=== PATIENT | female | born 1955 ===

== ENCOUNTER 2018-08-11 17:50 | Emergency (ER) | payer MEDICAID, MEDICARE ==
--- NOTE | 2018-08-11 18:21 | Emergency Department Report ---
ED General Adult HPI - General Chief complaint: Psych Stated complaint: MENTAL HEALTH Time Seen by Provider: 08/11/18 18:20 Source: patient, RN notes reviewed Mode of arrival: Ambulatory Limitations: Other (patient is actively psychotic) - History of Present Illness Initial comments: This is a 63-year-old female, not known to this provider previously, but to the hospital by her ACT counselor, Ms. Zamora; [phone]. Apparently, patient has a history of diabetes, hypertension, schizophrenia, has been noncompliant with her medications, and is brought to the hospital on a 1013. Apparently, patient lives in a personal retirement, and has been harming or tenting to harm people in her community. The patient is hyperverbal, but reports that she is not homicidal, suicidal, reports that she does not have access to guns or firearms, and reports no hallucinations. She denies physical pain. The patient is not able to describe the alleged exacerbating, relieving factors, radiation factors of the aforementioned. -: unknown Quality: other Consistency: other Improves with: other Worsens with: other Associated Symptoms: denies: chest pain - Related Data Home Medications Medication Instructions Recorded Confirmed Last Taken Benztropine [Cogentin] 1 mg PO BID 08/11/18 08/11/18 Unknown Divalproex Sodium [Depakote ER] 500 mg PO BID 08/11/18 08/11/18 Unknown risperiDONE [RisperDAL] 1 mg PO QHS 08/11/18 08/11/18 Unknown Allergies Allergy/AdvReac Type Severity Reaction Status Date / Time No Known Allergies Allergy Unverified 08/11/18 17:59 ED Review of Systems ROS: Stated complaint: MENTAL HEALTH Other details as noted in HPI Constitutional: denies: fever Eyes: denies: eye discharge ENT: denies: epistaxis Respiratory: denies: cough Cardiovascular: denies: chest pain Gastrointestinal: denies: abdominal pain Musculoskeletal: back pain Psychiatric: denies: suicidal thoughts ED Past Medical Hx - Past Medical History Previous Medical History?: Yes Hx Hypertension: Yes Hx Diabetes: Yes - Social History Smoking Status: Current Every Day Smoker Substance Use Type: Alcohol - Medications Home Medications: Home Medications Medication Instructions Recorded Confirmed Last Taken Type Benztropine [Cogentin] 1 mg PO BID 08/11/18 08/11/18 Unknown History Divalproex Sodium [Depakote ER] 500 mg PO BID 08/11/18 08/11/18 Unknown History risperiDONE [RisperDAL] 1 mg PO QHS 08/11/18 08/11/18 Unknown History ED Physical Exam - General Limitations: Other (patient is psychotic) General appearance: alert, in no apparent distress - Head Head exam: Present: atraumatic, normocephalic - Eye Eye exam: Present: normal appearance, EOMI. Absent: nystagmus - ENT ENT exam: Present: normal exam, normal orophraynx, mucous membranes moist, nor mal external ear exam - Neck Neck exam: Present: normal inspection, full ROM. Absent: tenderness, meningismus - Respiratory Respiratory exam: Present: normal lung sounds bilaterally. Absent: respiratory distress - Cardiovascular Cardiovascular Exam: Present: regular rate, normal rhythm, normal heart sounds. Absent: bradycardia, tachycardia, irregular rhythm, systolic murmur, diastolic murmur, rubs, gallop - GI/Abdominal GI/Abdominal exam: Present: soft. Absent: distended, tenderness, guarding, rebound, rigid, pulsatile mass - Extremities Exam Extremities exam: Present: normal inspection, full ROM, other (2+ pulses noted in the bilateral upper, lower extremities. Compartments soft. No long bony tenderness. The pelvis is stable.). Absent: calf tenderness - Back Exam Back exam: Present: normal inspection, full ROM. Absent: tenderness, CVA tenderness (R), paraspinal tenderness, vertebral tenderness - Neurological Exam Neurological exam: Present: alert, other (Extraocular movements intact. Tongue midline. No facial droop. Facial sensation intact to light touch in the V1, V2, V3 distribution bilaterally. 5 and 5 strength in 4 extremities.. Sensation is intact to light touch in 4 extremities.). Absent: motor sensory deficit - Psychiatric Psychiatric exam: Present: agitated, anxious - Skin Skin exam: Present: warm, dry, intact, normal color. Absent: rash ED Course Vital Signs 08/11/18 17:55 Temperature 99.7 F H Pulse Rate 99 H Respiratory 16 Rate Blood Pressure 143/86 O2 Sat by Pulse 100 Oximetry - Reevaluation(s) Reevaluation #1: 08/11/18 19:24 Differential diagnosis, including but not limited to: Psychosis, medical clearance for psychiatric placement, anxiety, agitation Assessment and plan: 63-year-old female with florid psychosis, agitated, amenable to verbal Descalation techniques, who is alert to name, location, month and year, with no documented fever, no neck pain,no neck stiffness, and an unr emarkable physical examination. The patient is hyperverbal, and easily distracted and disorganized. He is placed on a 1013. Screening laboratory studies pending. Psychiatry consult has been requested. Reevaluation #2: 08/11/18 21:03 Laboratory studies reviewed and are unremarkable. Patient is resting comfortably. The patient is in no acute distress at this time. At this point in time, there does not appear to be in immediate medical contraindication to psychiatric admission, evaluation and consultation. Psychiatry team has been paged. ED Medical Decision Making - Lab Data Result diagrams: 08/11/18 18:01 08/11/18 18:01 Vital Signs 08/11/18 17:55 Temperature 99.7 F H Pulse Rate 99 H Respiratory 16 Rate Blood Pressure 143/86 O2 Sat by Pulse 100 Oximetry Labs 08/11/18 08/11/18 08/11/18 18:01 18:01 18:01 WBC RBC Hgb Hct MCV MCH MCHC RDW Plt Count Lymph % (Auto) [place] % (Auto) Eos % (Auto) Baso % (Auto) Lymph # [place] # Eos # Baso # Seg Neutrophils % Seg Neutrophils # Sodium 141 Potassium 4.3 Chloride 102.7 Carbon Dioxide 28 Anion Gap 15 BUN 12 Creatinine 1.1 Estimated GFR 50 BUN/Creatinine Ratio 11 Glucose 238 H Calcium 9.8 Total Creatine Kinase Salicylates < 0.3 L Acetaminophen < 5.0 L Plasma/Serum Alcohol 08/11/18 08/11/18 08/11/18 18:01 18:01 18:25 WBC 7.2 RBC 4.31 Hgb 11.3 Hct 35.3 MCV 82 MCH 26 L MCHC 32 RDW 18.7 H Plt Count 204 Lymph % (Auto) 40.2 H [place] % (Auto) 5.6 Eos % (Auto) 2.0 Baso % (Auto) 0.3 Lymph # 2.9 [place] # 0.4 Eos # 0.1 Baso # 0.0 Seg Neutrophils % 51.9 Seg Neutrophils # 3.7 Sodium Potassium Chloride Carbon Dioxide Anion Gap BUN Creatinine Estimated GFR BUN/Creatinine Ratio Glucose Calcium Total Creatine Kinase 351 H Salicylates Acetaminophen Plasma/Serum Alcohol < 0.01 Critical care attestation.: If time is entered above; I have spent that time in minutes in the direct care of this critically ill patient, excluding procedure time. ED Disposition Clinical Impression: Medical clearance for psychiatric admission Disposition: [id number] PSY HOSP/PSY UNIT Is pt being admited?: No Does the pt Need Aspirin: No Condition: Good
[2018-08-11 18:30] LABS: Basophils % (Auto) 0.3 % (0.0-1.8); Eosinophils # (Auto) 0.1 K/mm3 (0.0-0.4); Hematocrit 35.3 % (30.3-42.9); Hemoglobin 11.3 gm/dl (10.1-14.3); Lymphocytes # (Auto) 2.9 K/mm3 (1.2-5.4); Lymphocytes % (Auto) 40.2 % (13.4-35.0); Mean Corpuscular HGB Conc 32 % (30-34); Mean Corpuscular Volume 82 fl (79-97); Monocytes # (Auto) 0.4 K/mm3 (0.0-0.8); Monocytes % (Auto) 5.6 % (0.0-7.3); Platelet Count 204 K/mm3 (140-440); Red Blood Count 4.31 M/mm3 (3.65-5.03); Red Cell Distribution Width 18.7 % (13.2-15.2)
[2018-08-11 18:48] LABS: Calcium 9.8 mg/dL (8.4-10.2)
[2018-08-11] MEDS: RisperDAL PO SCH (21:28)
[2018-08-11] MEDS: COGENTIN PO SCH (21:28)
[2018-08-12 07:20] LABS: Bilirubin,Urine NEG (Negative); Blood,Urine NEG (Negative); Color,Urine Yellow (Yellow); Hyaline Casts,Urine 1 /LPF; Protein,Urine <15 mg/dL mg/dL (Negative); RBC,Urine < 1.0 /HPF (0.0-6.0); Urobilinogen,Urine < 2.0 mg/dL (<2.0)
[2018-08-12 07:41] LABS: Amphetamine Screen,Urine PRESUMPTIVE NEGATIVE; Benzodiazepines Screen,Urine PRESUMPTIVE NEGATIVE; Cannabinoid Screen,Urine PRESUMPTIVE NEGATIVE; Cocaine Screen,Urine PRESUMPTIVE NEGATIVE; Methadone Screen,Urine PRESUMPTIVE NEGATIVE; Opiate Screen,Urine PRESUMPTIVE NEGATIVE
[2018-08-12] MEDS: COGENTIN PO SCH ×2 (10:35→22:50)
[2018-08-12] MEDS ORDERED: NORVASC PO ONE (11:04)
[2018-08-12] MEDS ORDERED: ZESTRIL PO ONE (11:04)
--- NOTE | 2018-08-12 11:06 | Emergency Department Report ---
Blank Doc - Documentation Documentation: I was asked by RN to manage hypertension. According to my colleague's documen jana, patient does have history of diabetes and hypertension. I have initiated amlodipine and lisinopril. Also requested nurse to contact pharmacy for her full list of home medications.
[2018-08-12] MEDS: ATIVAN IM PRN (12:58)
[2018-08-12] MEDS: HALDOL IM PRN (12:58)
--- NOTE | 2018-08-12 13:58 | Consultation ---
History of Present Illness - Reason for Consult Consult date: 08/12/18 Reason for consult: Mental Health Evaluation Requesting physician: SIA ROCHA - Chief Complaint Chief complaint: "I was upset, that's all" - History of Present Psychiatric Illness 63 y.o. AA female who presented to the ER on a 1013 by her ACT counselor for bizarre behavior. Today the patient is calm and cooperative during the assessment. She stated that she got into an argument with her counselor about other residents at her [facility]. She stated that she was trying to get her counselor to under her side of the "story," but things got "bad." She stated that she was upset and she was brought to the ER. She stated that she wouldn't mind going back to her group if possible. She was asked about psy medications, she stated, "I'm not really sure what I take." She denies SI/HI's and AVH's. She denies erratic sleep and a poor appetite. She denies recreational drug use and alcohol consumption (etoh). Medications and Allergies Allergies Allergy/AdvReac Type Severity Reaction Status Date / Time No Known Allergies Allergy Unverified 08/11/18 17:59 Home Medications Medication Instructions Recorded Confirmed Last Taken Type Benztropine [Cogentin] 1 mg PO BID 08/11/18 08/11/18 Unknown History Divalproex Sodium [Depakote ER] 500 mg PO BID 08/11/18 08/11/18 Unknown History risperiDONE [RisperDAL] 1 mg PO QHS 08/11/18 08/11/18 Unknown History Active Meds: Active Medications Benztropine Mesylate (Cogentin) 1 mg PO BID [facility] Last Admin: 08/12/18 10:35 Dose: 1 mg Documented by: Divalproex Sodium (Depakote Er) 500 mg PO BID [facility] Last Admin: 08/12/18 10:35 Dose: 500 mg Documented by: Haloperidol Lactate (Haldol) 5 mg IM Q6HR PRN PRN Reason: Agitation Last Admin: 08/12/18 12:58 Dose: 5 mg Documented by: Lorazepam (Ativan) 2 mg IM Q4HR PRN PRN Reason: Agitation Last Admin: 08/12/18 12:58 Dose: 2 mg Documented by: Risperidone (Risperdal) 1 mg PO QHS [facility] Last Admin: 08/11/18 21:28 Dose: 1 mg Documented by: Past psychiatric history - Past Medical History Past Medical History: diabetes, hypertension Past Surgical History: No surgical history - past Psychiatric treatment and history psychiatric treatment history: outpatient psy services (ACT team). Denies a fam psy hx. - Social History Social history: other (Reside at a fpc) Mental Status Exam - Vital signs Last Vital Signs Temp 99.1 F 08/12/18 13:00 Pulse 75 08/12/18 13:00 Resp 16 08/12/18 13:00 BP 169/106 08/12/18 13:00 Pulse Ox 98 08/12/18 13:00 - Exam Narrative exam: MSE: Appearance: calm, cooperative Behavior: regular eye contact Speech: regular rate and tone Mood: "okay" Affect: congruent to mood Thought Process: circumstantial Thought Content: denies SI/HI's and VH's Motor Activity: sitting up in bed Cognition: A/O x 3 Insight:variable to fair Judgment: fair Results Result Diagrams: 08/11/18 18:01 08/11/18 18:01 Abnormal lab results 08/11/18 08/11/18 08/11/18 Range/Units 18:01 18:01 18:01 MCH (28-32) pg RDW (13.2-15.2) % Lymph % (Auto) (13.4-35.0) % Glucose 238 H (65-100) mg/dL Total Creatine Kinase (30-135) units/L Salicylates < 0.3 L (2.8-20.0) mg/dL Acetaminophen < 5.0 L (10.0-30.0) ug/mL Valproic Acid (50-100) ug/mL 08/11/18 08/11/18 08/11/18 Range/Units 18:01 18:25 19:28 MCH 26 L (28-32) pg RDW 18.7 H (13.2-15.2) % Lymph % (Auto) 40.2 H (13.4-35.0) % Glucose (65-100) mg/dL Total Creatine Kinase 351 H (30-135) units/L Salicylates (2.8-20.0) mg/dL Acetaminophen (10.0-30.0) ug/mL Valproic Acid < 2.8 L (50-100) ug/mL All other labs normal. Assessment and Plan Assessment and plan: Impression:: Today the patient is calm and cooperative during the assessment. UDS is negative. DDx Mood DO, R/O Psychotic DO Recommendation/Plan: Continue 1013 and gather collateral information to determine proper treatment. Voicemail was left for the patient's counselor Noah at [phone]. Dispo: Once collateral information is gathered, proper dispo will be determined. Staffed with Dr Ruby.
[2018-08-12] MEDS: RisperDAL PO SCH (22:50)
[2018-08-13] MEDS: COGENTIN PO SCH (11:03)
--- NOTE | 2018-08-13 11:09 | Progress Note ---
Subjective - Reason for Consult Consult date: 08/13/18 Reason for consult: Psychiatry Follow-up - Chief Complaint Chief complaint: "I'm okay" 63 y.o. AA female who presented to the ER on a 1013 by her ACT counselor for bizarre behavior. Today the patient is calm and cooperative during the assessment. She is adamant that she was upset with her counselor when she was brought to the ER. Per the notes, the patient was never suicidal/homicidal. She denies SI/HI's and AVH's. Per the staff, no behavioral disturbances by the patient overnight. Mental Status Exam - Vital signs Last Vital Signs Temp 98.5 F 08/12/18 19:36 Pulse 71 08/12/18 19:36 Resp 18 08/12/18 19:36 BP 148/77 08/12/18 19:36 Pulse Ox 97 08/12/18 19:36 - Exam Narrative exam: MSE: Appearance: calm, cooperative Behavior: regular eye contact Speech: regular rate and tone Mood: "okay" Affect: congruent to mood Thought Process: logical Thought Content: denies SI/HI's and AVH's Motor Activity: sitting up in bed Cognition: A/O x 3 Insight:fair Judgment: fair Assessment and Plan Impression:: No overt psychosis with the patient. Today the patient is calm and cooperative during the assessment. UDS is negative. The patient is no threat to others. DDx Mood DO, R/O Psychotic DO Recommendation/Plan: Rescind 1013. Case Mgmt involvement, the patient may need assistance with transportation home. Dispo: The patient can follow up with [facility] for outpatient psy services. Will staff with Dr Ruby.
[2018-08-13 12:24] VITALS: BP 156/83
[2018-08-13] MEDS: ATIVAN IM PRN (12:57)
[2018-08-13] MEDS: HALDOL IM PRN (12:57)
== END 2018-08-13 14:35 | disposition home or self-care (01) ==
LOC: ED 17:50 → EEVIPCON 17:50 → ED 08-13 14:35
DX: F23 Brief psychotic disorder (principal)
CPT/HCPCS: 36415; 80048; 80164; 80307; 81001; 82550; 85025; 96372; 99284; G0480; J1630; J2060; 80320